=== PATIENT | female | born 1985 | race African-American/Black ===

== ENCOUNTER 2022-05-28 17:29 | Emergency (ER) | payer OTHER ==
[~2022-05-28] VITALS: Ht 152.4 cm; Wt 57.2 kg
[2022-05-28] MEDS ORDERED: IBUPROFEN 400 MG TAB PO ONE (18:00)
[2022-05-28] MEDS ORDERED: KETOROLAC TROMETHAMINE 30 MG/ML VIAL IV STA (18:01)
[2022-05-28] MEDS ORDERED: ONDANSETRON HCL INJ 2MG/ML 2ML 2 MG/ML VIAL IV STA (18:01)
[2022-05-28] MEDS ORDERED: ACETAMIN/BUTALBITAL/CAFFEINE TAB PO ONE (18:15)
[2022-05-28] MEDS ORDERED: SODIUM CHLORIDE 0.9% 1000ML 1,000 ML IV ONE (18:15)
[2022-05-28] MEDS ORDERED: DEXAMETHASONE SOD PHOS 10 MG/1 ML VIAL IV ONE (18:15)
[2022-05-28] MEDS ORDERED: DIPHENHYDRAMINE HCL 25 MG CAP PO ONE (18:15)
[2022-05-28] MEDS ORDERED: FIORICET 50-301 EACH PO (19:26)
[2022-05-28 20:12] VITALS: BP 120/74
== END 2022-05-28 20:13 | disposition home or self-care (01) ==
LOC: ER 17:42
DX: G43.909 Migraine, unspecified, not intractable, without status migrainosus (principal); J45.909 Unspecified asthma, uncomplicated
CPT/HCPCS: 99283; J1100; J1885; J2405; J7030

== ENCOUNTER 2022-07-27 16:15 | Emergency (ER) | payer OTHER ==
[~2022-07-27] VITALS: Ht 154.9 cm; Wt 58.1 kg
[~2022-07-27 16:15] MED LIST: FIORICET 50-301 EACH PO
[2022-07-27] MEDS ORDERED: DEXAMETHASONE SOD PHOS 10 MG/1 ML VIAL IM ONE (17:00)
[2022-07-27] MEDS ORDERED: ALBUTEROL/IPRATROPIUM 3 ML NEB NEB ONE (17:00)
[2022-07-27] MEDS ORDERED: BROMFED DM COU118 ML PO (17:59)
== END 2022-07-27 18:00 | disposition home or self-care (01) ==
LOC: ER 16:19
DX: R05.9 Cough, unspecified (principal); J06.9 Acute upper respiratory infection, unspecified; J45.901 Unspecified asthma with (acute) exacerbation; F17.210 Nicotine dependence, cigarettes, uncomplicated
CPT/HCPCS: 71045; 93005; 94640; 94799; 99282; J1100